=== PATIENT | female | born 1945 | race Caucasian/White ===

== ENCOUNTER → 2016-03-17 | Outpatient (CLI) | payer OTHER, BC ==
[~2016-03-17] MED LIST: ASPIRIN325 PO; BENEFIBER1 EAC1 PO; CALCIUM 500 +1 EAC5 PO; CEPHALEXIN 500500 M1 PO; CEPHALEXIN250 MG PO; CO Q-10100 MG PO; CYCLOBENZAPRINE10 MG PO; ESTRACE1 TUBE; FLAGYL500 MG PO; HYDROCHLOROTH12.5 M1 PO; LOSARTAN-HCTZ1 EACH PO; MICARDIS HCT 41 EACH PO; NORCO 5-325 TA1 EACH PO; PRILOSEC 20 MG20 MG PO; PROBIOTIC1 EAC1 PO; RESTASIS1 EACH OPHTHALMIC; SIMVASTATIN20 MG PO; TOPROL XL50 MG PO; TYLENOL325 MG PO; VAGIFEM10 MCG VG; VALIUM2 MG PO
== END ==
LOC: RAD 09:02
DX: R05 Cough (principal)

== ENCOUNTER → 2017-12-28 | Outpatient (CLI) | payer OTHER, BC | LOC: CAT 10:43 | DX: J34.89 Other specified disorders of nose and nasal sinuses (principal); J32.9 Chronic sinusitis, unspecified ==

== ENCOUNTER → 2018-06-08 | Outpatient (CLI) | payer OTHER, BC | LOC: CAT 10:26 | DX: J34.2 Deviated nasal septum (principal); J32.9 Chronic sinusitis, unspecified ==

== ENCOUNTER 2019-03-20 10:48 | Emergency (ER) | payer OTHER, BC ==
[~2019-03-20] VITALS: Ht 154.9 cm; Wt 67.6 kg
[2019-03-20] MEDS ORDERED: MONUROL3 GM PER TUBE (12:27)
[2019-03-20 12:42] VITALS: BP 137/90
== END 2019-03-20 12:44 | disposition home or self-care (01) ==
LOC: ER 10:48
DX: N39.0 Urinary tract infection, site not specified (principal); Z88.6 Allergy status to analgesic agent; Z88.1 Allergy status to other antibiotic agents; Z88.2 Allergy status to sulfonamides; Z90.89 Acquired absence of other organs